=== PATIENT | male | born 1985 | race Caucasian/White ===

== ENCOUNTER → 2023-08-07 13:42 | Outpatient (CLI) | payer OTHER, SELFPAY ==
--- NOTE | ~2023-08-07 | XR_ITS ---
EXAMINATION: XR knee RT 3V DATE: 08/07/2023 14:17 INDICATION: Right knee pain. TECHNIQUE: 3 views of right knee were obtained. COMPARISON: None. FINDINGS: Bone alignment is normal. No fracture. Joint spaces are normal. No knee joint effusion. The re is anterior soft tissue swelling. IMPRESSION: 1. No arthritis. Reviewed, dictated and finalized at location E. D PUMP OPERATOR IMPRESSION: 1. No arthritis.
--- NOTE | ~2023-08-07 | XR_ITS ---
XR shoulder LT min 2V 08/07/2023 14:18 INDICATION: Left shoulder pain PROCEDURE: 4 views left shoulder COMPARISON: No prior studies for comparison. FINDINGS: Fracture, dislocation or subluxation is not identified. The soft tissues appear within norm al limits. No foreign bodies are identified. IMPRESSION: 1: NO ACUTE BONE OR JOINT ABNORMALITY IDENTIFIED. Reviewed, dictated and finalized at location B. [employer]
== END ==
PROVIDERS: PCP Family Medicine; Visit Provider Nurse Practitioner Family
DX: M25.561 Pain in right knee (principal); M25.512 Pain in left shoulder
CPT/HCPCS: 73030; 73562